=== PATIENT | male | born 1950 | race Two or more races ===

== ENCOUNTER 2022-04-25 05:21 | Inpatient (IN) | payer MEDICARE, OTHER ==
[2022-04-17 11:21] LABS: BASOPHILS % (AUTO) 0.7 % (0-1); EOSINOPHILS # (AUTO) 0.3 X10'3 (0-0.9); EOSINOPHILS % (AUTO) 4.8 % (0-6); LYMPHOCYTES # (AUTO) 2.3 X10'3 (1.1-4.8); LYMPHOCYTES % (AUTO) 38.6 % (21-51); MEAN CORPUSCULAR HEMOGLOBIN 31.9 PG (27.0-31.0); MEAN CORPUSCULAR HGB CONC 33.9 g/dL (33.0-36.5); MEAN CORPUSCULAR VOLUME 94.3 FL (78-98); MONOCYTES # (AUTO) 0.6 X10'3 (0-0.9); MONOCYTES % (AUTO) 9.3 % (2-12); NEUTROPHILS # (AUTO) 2.8 X10'3 (1.8-7.7); NEUTROPHILS % (AUTO) 46.6 % (42-75); PRE OP HEMATOCRIT 48.5 % (42.0-52.0); PRE OP HEMOGLOBIN 16.4 g/dL (14.0-17.9); PRE OP PLATELET COUNT 181 X10'3 (140-440); RED BLOOD COUNT 5.14 X10'6 (4.70-6.10); RED CELL DISTRIBUTION WIDTH 13.2 % (11.5-14.5)
[2022-04-17 11:28] LABS: CLARITY,URINE CLEAR (Clear); COLOR,URINE YELLOW (Yellow); GLUCOSE, URINE NEGATIVE (Neg); KETONES,URINE NEGATIVE (Neg); LEUKOCYTE ESTERASE ,URINE NEGATIVE (Neg); NITRITES, URINE NEGATIVE (Neg); OCCULT BLOOD,URINE NEGATIVE (Neg); PH,URINE 5.5 (4.8-8.0); PROTEIN,URINE NEGATIVE (Neg); UROBILINOGEN,URINE 0.2 E.U/dL (0.2-1.0)
[2022-04-17 11:40] LABS: UA COLLECTION TYPE NON-SPECIFIED
[2022-04-17 11:46] LABS: ALBUMIN 4.1 G/DL (3.4-5.0); ALBUMIN/GLOBULIN RATIO 1.3 (1.1-1.5); ALKALINE PHOSPHATASE 71 IU/L (46-116); BLOOD UREA NITROGEN 15 MG/DL (7-18); BUN/CREATININE RATIO 13.3 (5.4-32.0); CALCIUM 9.6 MG/DL (8.5-10.1); CHLORIDE 101 MMOL/L (99-107); CREATININE 1.13 MG/DL (0.60-1.10); PRE OP ALT 69 U/L (30-65); PRE OP ANION GAP 10 (8-16); PRE OP AST 43 U/L (10-37); PRE OP BILIRUB, TOTAL 1.4 MG/DL (0.0-1.0); PRE OP GLUCOSE 107 MG/DL (70-104); PRE OP POTASSIUM 3.9 MMOL/L (3.4-5.1); PRE OP SODIUM 136 MMOL/L (135-145); TOTAL CARBON DIOXIDE 25.4 MMOL/L (24-32); TOTAL PROTEIN 7.3 G/DL (6.4-8.2); eGFR 64 ML/MIN
[~2022-04-25] VITALS: Ht 185.4 cm; Wt 116.0 kg
[2022-04-25] VITALS (26 sets, daily range): BP systolic 123–152; BP diastolic 72–102
[~2022-04-25 05:21] MED LIST: ATOR20TA66 PO; HYDR12.55 PO; LOSA100T57 PO
[2022-04-25] MEDS ORDERED: oxyCODONE SR 10mg (sust. release) tab -2 tabs (20mg) PO ONE (05:30)
[2022-04-25] MEDS ORDERED: celeCOXIB 100mg capsule PO ONE (05:30)
[2022-04-25] MEDS ORDERED: acetaminophen 325mg tablet PO ONE (05:30)
[2022-04-25] MEDS ORDERED: ceFAZolin inj. 2,000 MG in dextrose 5%-water 100 ML IV ONE (05:30)
[2022-04-25] MEDS ORDERED: famotidine 20mg tablet PO ONE (05:30)
[2022-04-25] MEDS ORDERED: metoclopramide 5 mg/ml inj IV ONE (05:30)
[2022-04-25] MEDS ORDERED: vancomycin 1,500 MG in NS 300ml IV soln IV ONE (05:30)
[2022-04-25] MEDS ORDERED: tranexamic acid inj. 1,000 MG in normal saline IV soln 100ML IV ONE (05:30)
[2022-04-25] MEDS ORDERED: gabapentin 300mg capsule PO ONE (05:30)
[2022-04-25] MEDS: ringers solution, lacted 1,000 ML IV SCH ×2 (06:14→15:39)
--- NOTE | 2022-04-25 06:17 | NUR ---
PATIENT DID NOT USE OINTMENT OR WATCH VIDEO, PULSES MARKED [facility]SM INTACT
[2022-04-25] MEDS ORDERED: ketorolac trometh. 30mg/ml inj. ONE (06:44)
[2022-04-25] MEDS ORDERED: cloNIDine hcl/PF 100mcg/ml inj ONE (06:44)
[2022-04-25] MEDS ORDERED: epiNEPHrine 1 mg/ml inj ONE (06:44)
[2022-04-25] MEDS ORDERED: ROPIVAcaine 0.5% (5mg/ml) 30ml vial ONE ×2 (06:44→07:28)
[2022-04-25] MEDS ORDERED: vancomycin 1,000mg inj ONE (06:44)
[2022-04-25] MEDS ORDERED: FENTANYL CITRATE/PF 50 MCG/1 ML VIAL ONE (07:22)
[2022-04-25] MEDS ORDERED: MIDAZolam 1 MG/ML 5ML VIAL ONE (07:22)
[2022-04-25] MEDS ORDERED: naloxone 0.4 mg/ml inj IV PRN (07:45)
[2022-04-25] MEDS ORDERED: HYDROmorphone inj. 0.5 MG/0.5 ML DISP.SYRIN IV PRN (07:45)
[2022-04-25] MEDS ORDERED: diphenhydrAMINE 25mg capsule PO PRN ×2 (07:45)
[2022-04-25] MEDS ORDERED: LIDOcaine 1%/PF 5ML 10 MG/ML VIAL ONE (07:45)
[2022-04-25] MEDS ORDERED: HYDROmorphone 1 mg/ml syringe IV PRN (07:45)
[2022-04-25] MEDS ORDERED: bisacodyl 10mg suppository rectal RC PRN (07:45)
[2022-04-25] MEDS ORDERED: magnesium hydroxide 30ml (MOM) UD suspension PO PRN (07:45)
[2022-04-25] MEDS ORDERED: dexamethasone sod phosphate 4mg/ml inj. ONE (07:45)
[2022-04-25] MEDS ORDERED: HYDROcodone/acetaminophen 10/325mg tab PO PRN (07:45)
[2022-04-25] MEDS ORDERED: propofol inj 20 ML IV ONE (07:45)
[2022-04-25] MEDS ORDERED: fentaNYL /PF 50mcg/ml 5ml ampule ONE (07:51)
[2022-04-25] MEDS ORDERED: ringers solution, lacted 1,000 ML IV SCH (08:50)
[2022-04-25] MEDS ORDERED: ondansetron/PF 4mg/2ml inj IV PRN (08:50)
[2022-04-25] MEDS ORDERED: meperidine/PF 25mg/ml syringe IV PRN ×2 (08:50)
[2022-04-25] MEDS ORDERED: proCHLORperazine 10 MG/2 ml inj IV PRN (08:50)
[2022-04-25] MEDS ORDERED: ROPIVAcaine 0.2% (10 MG/5 ML) BOLUS INJECTION ADDCANAL PRN (09:21)
--- NOTE | 2022-04-25 09:37 | NUR ---
Received from OR via , accompanied by Anesthesiologist LAITH AND OR NURSE and report given by Anesthesiolgist. PT IS DROWSY YET RESPONDS TO VERBAL STIMULI. C/O PAIN TO SURGICAL LEFT KNEE. EXPLAINS BLOCK WENT IN LATER WILL BEGIN TO TAKE AFFECT. PT PULSES BILATERAL WNL. ONQ AND TIFFANY DRESSING IN PLACE. VSS. Addendum: 04/25/22 at 1128 by Ale Peterson RN Amended: Links added.
[2022-04-25] MEDS ORDERED: acetaminophen 1,000mg/100ml IV 100 ML IV ONE (09:43)
[2022-04-25] MEDS: meperidine/PF 25mg/ml syringe IV PRN ×4 (09:44→10:52)
[2022-04-25] MEDS: ROPIVAcaine 0.2%/PF PUMP/bolus 545 ML ADDCANAL SCH ×2 (10:04→10:27)
[2022-04-25] MEDS: fentaNYL/PF 50MCG/1 ML 2ML syringe IV PRN (10:58)
--- NOTE | 2022-04-25 11:15 | NUR ---
PT PAIN NOT WELL CONTROLLED. DEMEROL GIVEN PER PROTOCOL. PHARMACIST NOT COMFORTABLE WITH DILAUDID SO ASKED TRIP FOR FENTANYL ORDER. STAFF PLACED ORDER AND FENTANYL GIVEN Q5 MIN X2. ONQ BOLUS' GIVEN X3. PT STATES PAIN LEVEL MAY BE LOWERING. PT TOLERATING ICE CHIPS Addendum: 04/25/22 at 1131 by Ale Peterson RN Amended: Links added.
[2022-04-25] MEDS ORDERED: acetaminophen 325mg tablet PO PRN (12:00)
[2022-04-25] MEDS ORDERED: ketorolac trometh. 30mg/ml inj. IM SCH (12:00)
--- NOTE | 2022-04-25 12:07 | NUR ---
Report called to receiving nurse. Transferred via BED WITH 2 BAGS OF Belongings CALLED FLOOR TO GIVE CELINE, RECEIVING NURSE THAT TORADOL HAS BEEN ORDERED. PT STATES RELIEF OF PAIN; NUMBER 2. VSS. Special Issues communicated to receiving nurse. Addendum: 04/25/22 at 1214 by Ale Peterson RN Amended: Links added.
[2022-04-25] MEDS: potassium cl 20mEq in 1/2 NS 1,000 ML IV SCH ×2 (12:51→22:00)
[2022-04-25] MEDS: losartan 50mg tablet PO SCH (12:55)
[2022-04-25] MEDS: HYDROchlorothiazide 12.5mg capsule PO SCH (12:56)
[2022-04-25] MEDS: gabapentin 300mg capsule PO SCH ×2 (12:56→20:45)
[2022-04-25] MEDS: multivitamins, therapeutics tablet PO SCH (12:57)
[2022-04-25] MEDS: ketorolac trometh. 30mg/ml inj. IV SCH (13:04)
[2022-04-25] MEDS ORDERED: NORMAL SALINE IV ONE (13:30)
[2022-04-25] MEDS ORDERED: TRANEXAMIC ACID IV ONE (13:30)
[2022-04-25] MEDS: HYDROcodone/acetaminophen 10/325mg tab PO PRN (17:36)
[2022-04-25] MEDS ORDERED: VANCOMYCIN 1,500MG inj. 1,500 MG in normal saline 500ml IV soln 300 ML IV ONE (18:00)
--- NOTE | 2022-04-25 18:36 | NUR ---
Patient in room [facility]. I have received report from CELINE LANDRY and had the opportunity to ask questions and assume patient care.
--- NOTE | 2022-04-25 18:43 | NUR ---
Patient appears stable good pulse to left foot. Ice therapy to knee. Toradol given for pain with good effect. family present. Report given to Prudence RN
[2022-04-25] MEDS: celeCOXIB 100mg capsule PO SCH (20:44)
[2022-04-25] MEDS ORDERED: sennosides 8.6mg tablet PO SCH (21:00)
[2022-04-25] MEDS ORDERED: atorvastatin 20mg tablet PO SCH (21:00)
[2022-04-25] MEDS: ondansetron/PF 4mg/2ml inj IV PRN (21:34)
[2022-04-26] MEDS: ketorolac trometh. 30mg/ml inj. IV SCH ×2 (00:45→07:25)
[2022-04-26] MEDS: fentaNYL/PF 50MCG/1 ML 2ML syringe IV PRN (00:49)
[2022-04-26] MEDS: meperidine/PF 25mg/ml syringe IV PRN (00:49)
[2022-04-26 02:35] VITALS: BP 120/66
[2022-04-26] MEDS: potassium cl 20mEq in 1/2 NS 1,000 ML IV SCH (03:27)
--- NOTE | 2022-04-26 06:13 | NUR ---
Problems reprioritized. Patient report given, questions answered & plan of care reviewed with CELINE LANDRY.
--- NOTE | 2022-04-26 06:23 | NUR ---
Patient in room [facility]. I have received report from mary LANDRY and had the opportunity to ask questions and assume patient care.
[2022-04-26 06:31] LABS: BASOPHILS % (AUTO) 0.3 % (0-1); EOSINOPHILS % (AUTO) 0 % (0-6); HEMATOCRIT 39.4 % (42.0-52.0); HEMOGLOBIN 13.3 g/dl (14.0-17.9); LYMPHOCYTES # (AUTO) 1.3 X10'3 (1.1-4.8); LYMPHOCYTES % (AUTO) 9.7 % (21-51); MEAN CORPUSCULAR HEMOGLOBIN 31.8 PG (27.0-31.0); MEAN CORPUSCULAR HGB CONC 33.7 g/dL (33.0-36.5); MEAN CORPUSCULAR VOLUME 94.3 FL (78-98); MEAN PLATELET VOLUME 9.5 FL (7.4-10.4); MONOCYTES # (AUTO) 1.1 X10'3 (0-0.9); NEUTROPHILS # (AUTO) 11.4 X10'3 (1.8-7.7); PLATELET COUNT 151 X10'3 (140-440); RED BLOOD COUNT 4.18 X10'6 (4.70-6.10); RED CELL DISTRIBUTION WIDTH 12.8 % (11.5-14.5); WHITE BLOOD COUNT 13.9 X10'3 (4.5-11.0)
[2022-04-26 06:46] LABS: ANION GAP 9 (8-16); CHLORIDE 102 MMOL/L (99-107); POTASSIUM 3.9 MMOL/L (3.5-5.1); SODIUM 133 MMOL/L (135-145); TOTAL CARBON DIOXIDE 22.4 MMOL/L (24-32)
[2022-04-26 07:00] VITALS: BP 124/72
[2022-04-26] MEDS: multivitamins, therapeutics tablet PO SCH (07:27)
[2022-04-26] MEDS: HYDROchlorothiazide 12.5mg capsule PO SCH (07:27)
[2022-04-26 07:28] VITALS: BP_SYST 124
[2022-04-26] MEDS: losartan 50mg tablet PO SCH (07:28)
[2022-04-26] MEDS: gabapentin 300mg capsule PO SCH (07:28)
[2022-04-26] MEDS: celeCOXIB 100mg capsule PO SCH (07:28)
[2022-04-26] MEDS ORDERED: aspirin 325mg tablet PO SCH (08:30)
[2022-04-26] MEDS: HYDROcodone/acetaminophen 10/325mg tab PO PRN (10:17)
[2022-04-26] MEDS: ondansetron/PF 4mg/2ml inj IV PRN (10:17)
--- NOTE | 2022-04-26 13:05 | NUR ---
patient walked with PT cleared for discharge. Seen by Dr Killian Anderson, discharge orders placed. All DC instructions given to patient and spouse. patient DC home via private car in stable condition. 1200hrs
== END 2022-04-26 11:50 | disposition home or self-care (01) | DRG 470 ==
LOC: PAS 05:21 → PAS IN 07:48 → SUR 3N 12:13
PROVIDERS: ADMIT Orthopaedic Surgery; ATTEND Orthopaedic Surgery
PROC: 3E0T3BZ Introduction of Anesthetic Agent into Peripheral Nerves and Plexi, Percutaneous Approach (ICD-10-PCS; 2022-04-25)
PROC: 3E0T33Z Introduction of Anti-inflammatory into Peripheral Nerves and Plexi, Percutaneous Approach (ICD-10-PCS; 2022-04-25)
PROC: 0SRD069 Replacement of Left Knee Joint with Oxidized Zirconium on Polyethylene Synthetic Substitute, Cemented, Open Approach (ICD-10-PCS; principal; 2022-04-25 07:17)
DX: M17.12 Unilateral primary osteoarthritis, left knee (principal)
CPT/HCPCS: 36415; 73560; 80051; 80053; 81003; 82948; 85025; 87081; 97110; 97116; 97161; 97530; A4215; A4615; A7000; C1713; C1776; G0378; J0131; J0171; J0690; J0735; J1100; J1885; J2175; J2250; J2405; J2704; J2765; J2795; J3010; J3370; J3480; J3490; J7040; J7060; J7120

== ENCOUNTER 2022-04-29 21:38 | Emergency (ER) | payer MEDICARE, OTHER ==
[~2022-04-29] VITALS: Ht 185.4 cm; Wt 113.6 kg
[2022-04-29 21:43] VITALS: BP 130/73
== END 2022-04-30 00:44 | disposition left against medical advice (07) ==
LOC: ER 21:39
DX: T81.9XXA Unspecified complication of procedure, initial encounter (principal); Z53.21 Procedure and treatment not carried out due to patient leaving prior to being seen by health care provider